=== PATIENT | male | born 1950 | race Caucasian/White ===

== ENCOUNTER 2018-04-26 11:49 | Outpatient (CLI) | payer MEDICARE, OTHER | END 2018-04-26 11:50 | disposition critical access hospital (66) | LOC: EMS 11:49 | PROVIDERS: ATTEND Surgery | DX: M25.561 Pain in right knee (principal); W10.9XXA Fall (on) (from) unspecified stairs and steps, initial encounter; Y92.019 Unspecified place in single-family (private) house as the place of occurrence of the external cause | CPT/HCPCS: A0425; A0429 ==

== ENCOUNTER 2018-04-26 12:13 | Emergency (ER) | payer MEDICARE, OTHER ==
--- NOTE | 2018-04-26 13:15 | XRAY Report ---
Procedure Date: 04/26/2018 Accession Number: [id number] / [id number] Procedure: XR - Knee 4 View RT CPT Code: FULL RESULT: EXAM: RIGHT KNEE RADIOGRAPHY EXAM DATE: 04/26/2018 01:06 PM. CLINICAL HISTORY: Trauma. COMPARISON: None. TECHNIQUE: 4 views. FINDINGS: Bones: There is an acute minimally displaced fracture through the lateral articular surface of the lateral tibial plateau. Joints: Normal alignment. A moderate lipohemarthrosis is seen. Soft Tissues: Normal. No soft tissue swelling. IMPRESSION: Acute minimally displaced lateral tibial plateau fracture. RADIA
--- NOTE | 2018-04-26 13:17 | ED Physician Documentation ---
PD HPI LOWER EXT INJURY - Stated complaint Stated Complaint: Knee pain - Chief complaint Chief Complaint: Ext Problem - History obtained from History obtained from: Patient - History of Present Illness PD HPI LOW EXT INJURY LOCATION: Right, Knee Type of injury: Fall Where injury occurred: Home Timing - onset: Enter time (1119), Today Timing - duration: Minutes Timing - details: Abrupt onset, Still present Improved by: Rest, Ice, Immobilization Worsened by: Moving, Palpating Associated symptoms: Swelling. No: Weakness, Numbness Contributing factors: No: Anticoagulated Similar symptoms before: Has not had sx before Recently seen: Not recently seen - Additional information Additional information: 68-year-old male went to his friend's house today was walking down some stairs and slipped on some vinyl and jammed his foot into the ground. He is complaining of pain in the right knee. He was able to get into his car and drive home and when he got there he had to have help to get out of the truck and had significant swelling. He was not able to get up and walk and called the ambulance. Review of Systems Constitutional: denies: Fever Eyes: denies: Decreased vision Ears: denies: Ear pain Nose: denies: Reviewed and negative Throat: denies: Sore throat Respiratory: denies: Cough GI: denies: Vomiting : denies: Dysuria Skin: denies: Rash Musculoskeletal: reports: Extremity pain, Joint pain, Joint swelling, Pain with weight bearing. denies: Neck pain Neurologic: denies: Generalized weakness, Focal weakness, Numbness PD PAST MEDICAL HISTORY - Present Medications Home Medications: Ambulatory Orders Medication Instructions Recorded Confirmed HYDROcod/ACETAM 5/325 [[place] 5/325] 1 - 2 ea PO Q6H PRN #15 tablet 04/26/18 - Allergies Allergies/Adverse Reactions: Allergies Allergy/AdvReac Type Severity Reaction Status Date / Time No Known Drug Allergies Allergy Verified 04/26/18 12:20 PD ED PE NORMAL - Vitals Vital signs reviewed: Yes (hypertensive ) - General General: Alert and oriented X 3, No acute distress, Well developed/nourished - HEENT HEENT: Atraumatic, PERRL, EOMI - Respiratory Respiratory: No respiratory distress - Derm Derm: Normal color, Warm and dry, No rash - Extremities Extremities: Other (There is marked swelling to the right knee anteriorly and pain along both joint lines there is acute exacerbation of the pain with any ROM. distal n/v is intact. ) - Neuro Neuro: Alert and oriented X 3, toll gate tender 2-12 intact, No motor deficit, No sensory deficit, Normal speech Eye Opening: Spontaneous Motor: Obeys Commands Verbal: Oriented GCS Score: 15 - Psych Psych: Normal mood, Normal affect Results - Vitals Vitals: Vital Signs - 24 hr 04/26/18 12:18 Temperature 36.9 C Heart Rate 90 Respiratory 18 Rate Blood Pressure 176/97 H O2 Saturation 100 Oxygen O2 Source Room air - Rads (name of study) knee Radiology: Prelim report reviewed (Impression: Acute minimally displaced lateral tibial plateau fracture.), EMP read indepedently, See rad report PD MEDICAL DECISION MAKING - ED course Complexity details: reviewed old records, reviewed results, re-evaluated patient , considered differential, d/w patient, d/w field service consultant (Wei: recomends immobilizer and follow up in clinic. ) ED course: 68-year-old male with a fall down stairs has a tibial plateau fracture which is nondisplaced on the right knee. He has a lot of swelling to the knee he is placed into a knee immobilizer and crutches will give his pain medication and he will follow-up with orthopedics. - Sepsis Event Vital Signs: Vital Signs - 24 hr 04/26/18 12:18 Temperature 36.9 C Heart Rate 90 Respiratory 18 Rate Blood Pressure 176/97 H O2 Saturation 100 Oxygen O2 Source Room air Departure - Departure Disposition: 01 Home, Self Care Clinical Impression: Tibial plateau fracture, right Qualifiers: Encounter type: initial encounter Fracture type: closed Qualified Code(s): S82.141A - Displaced bicondylar fracture of right tibia, initial encounter for closed fracture Condition: Stable Instructions: ED Fx Knee Follow-Up: Oj Carvajal MD [Provider Admit Priv/Credential] - Prescriptions: HYDROcod/ACETAM 5/325 [[place] 5/325] 1 - 2 ea PO Q6H PRN #15 tablet PRN Reason: Pain
[2018-04-26] MEDS: HYDROcod/ACETAM 5/325 MG TABLET PO STA (15:09)
[2018-04-26 16:34] VITALS: BP 160/90
--- NOTE | 2018-04-27 13:31 | ED Physician Documentation ---
ED Addendum - Addendum Addendum: 04/27/18 13:30 [facility] called and reported that the patient states he never received his prescription. They do not show that it has been filled anywhere. They do not show that he has ever been on narcotics from any other providers within the past year. Does not have any abuse history. Unclear if he actually received the prescription or not, therefore will refill a small amount of the pain medication for him as he does have a tibial plateau fracture. He will come and pick the prescription up today. Departure - Departure Disposition: 01 Home, Self Care Clinical Impression: Tibial plateau fracture, right Qualifiers: Encounter type: initial encounter Fracture type: closed Qualified Code(s): S82.141A - Displaced bicondylar fracture of right tibia, initial encounter for closed fracture Condition: Stable Instructions: ED Fx Knee Follow-Up: Oj Carvajal MD [Provider Admit Priv/Credential] - Prescriptions: HYDROcod/ACETAM 5/325 [[place] 5/325] 1 - 2 ea PO Q6H PRN #15 tablet PRN Reason: Pain Discharge Date/Time: 04/26/18 16:00
== END 2018-04-26 16:00 | disposition home or self-care (01) ==
LOC: ED 12:13
DX: S82.141A Displaced bicondylar fracture of right tibia, initial encounter for closed fracture (principal); W10.8XXA Fall (on) (from) other stairs and steps, initial encounter
CPT/HCPCS: 99283

== ENCOUNTER 2019-03-28 15:37 | Outpatient (CLI) | payer MEDICARE, OTHER | END 2019-03-28 15:38 | disposition short-term general hospital (02) | LOC: EMS 15:37 | PROVIDERS: ATTEND Surgery | DX: R07.89 Other chest pain (principal); R06.02 Shortness of breath | CPT/HCPCS: A0425; A0427 ==

== ENCOUNTER 2020-06-19 11:06 | Outpatient (CLI) | payer MEDICARE, OTHER | END 2020-06-19 11:07 | disposition critical access hospital (66) | LOC: EMS 11:06 | PROVIDERS: ATTEND Surgery | DX: R73.09 Other abnormal glucose (principal); R53.83 Other fatigue | CPT/HCPCS: A0425; A0429 ==

== ENCOUNTER 2020-06-19 11:28 | Emergency (ER) | payer MEDICARE, OTHER ==
[2020-06-19] MEDS ORDERED: SODIUM CHLORIDE 0.9% 1,000 ML IV STA ×2 (11:55→13:56)
[2020-06-19] MEDS ORDERED: INSULIN REGULAR HUMAN 100 UNIT in SODIUM CHLORIDE 0.9% 100ML 99 ML IV STA (11:55)
[2020-06-19] MEDS ORDERED: INSULIN REGULAR HUMAN 100 UNIT/1 ML 10 ML MDV IVP STA (11:56)
--- NOTE | 2020-06-19 11:59 | ED Physician Documentation ---
History of Present Illness - Stated complaint Stated Complaint: LETHARGY - Chief complaint Chief Complaint: General - History obtained from History obtained from: Patient - Additonal information Additional information: Previously well 70-year-old male with a prior history of prediabetes has developed fatigue and feeling not right. He states he feels about 60%. [facility] and was diagnosed with diabetes with a blood sugar over 400 and he was given insulin to start. He was unable to complete this this morning and has come to the emergency department. Review of Systems Constitutional: reports: Fatigue. denies: Fever, Chills, Myalgias Eyes: denies: Decreased vision Ears: denies: Ear pain Nose: denies: Rhinorrhea / runny nose, Congestion Throat: denies: Sore throat Cardiac: denies: Chest pain / pressure, Palpitations Respiratory: denies: Dyspnea, Cough GI: denies: Abdominal Pain, Nausea, Vomiting, Constipation, Diarrhea : denies: Dysuria, Frequency Skin: denies: Rash Musculoskeletal: denies: Neck pain, Back pain, Extremity pain Neurologic: denies: Generalized weakness, Focal weakness, Numbness, Difficulty speaking PD PAST MEDICAL HISTORY - Past Medical History Past Medical History: Yes Cardiovascular: Other Respiratory: None Neuro: None Endocrine/Autoimmune: Type 2 diabetes GI: None : None HEENT: None Psych: Depression Musculoskeletal: None Derm: None - Past Surgical History Past Surgical History: Yes - Present Medications Home Medications: Ambulatory Orders Medication Instructions Recorded Confirmed HYDROcod/ACETAM 5/325 [[place] 5/325] 1 - 2 ea PO Q6H PRN #15 tablet 04/26/18 metFORMIN [Glucophage] 500 mg PO BIDWM #40 tablet 06/19/20 - Allergies Allergies/Adverse Reactions: Allergies Allergy/AdvReac Type Severity Reaction Status Date / Time No Known Drug Allergies Allergy Verified 04/26/18 12:20 - Social History Does the pt smoke?: No Smoking Status: Former smoker Does the pt drink ETOH?: No Does the pt have substance abuse?: No - Immunizations Immunizations are current?: No PD ED PE NORMAL - Vitals Vital signs reviewed: Yes (Hypertensive) - General General: Alert and oriented X 3, No acute distress, Well developed/nourished - HEENT HEENT: Atraumatic, PERRL, EOMI, Other (Dry mucous membranes) - Neck Neck: Supple, no meningeal sign, No bony TTP - Cardiac Cardiac: RRR, No murmur - Respiratory Respiratory: No respiratory distress, Clear bilaterally - Abdomen Abdomen: Normal bowel sounds, Soft, Non tender, Non distended, No organomegaly - Back Back: No CVA TTP, No spinal TTP - Derm Derm: Normal color, Warm and dry, No rash - Extremities Extremities: No deformity, No edema, No calf tenderness / cord - Neuro Neuro: Alert and oriented X 3, workers compensation claims analyst 2-12 intact, No motor deficit, No sensory deficit, Normal speech Eye Opening: Spontaneous Motor: Obeys Commands Verbal: Oriented GCS Score: 15 - Psych Psych: Normal mood, Normal affect Results - Vitals Vitals: Vital Signs - 24 hr 06/19/20 06/19/20 06/19/20 11:31 11:44 13:34 Temperature 36.6 C 36.6 C 36.8 C Heart Rate 63 65 62 Respiratory 16 15 Rate Blood Pressure 135/79 H 136/82 H 114/71 O2 Saturation 99 99 100 06/19/20 15:00 Temperature Heart Rate 66 Respiratory 16 Rate Blood Pressure 111/56 L O2 Saturation 100 Oxygen O2 Source Room air - Labs Labs: Laboratory Tests 06/19/20 06/19/20 06/19/20 12:09 12:09 12:09 WBC 5.3 RBC 4.64 L Hgb 13.5 L Hct 40.1 L MCV 86.4 MCH 29.1 MCHC 33.7 RDW 14.4 Plt Count 134 MPV 12.4 H Neut # (Auto) 3.3 Lymph # (Auto) 0.9 L [place] # (Auto) 0.5 Eos # (Auto) 0.6 Baso # (Auto) 0.0 Absolute Nucleated RBC 0.00 Nucleated RBC % 0.0 VBG pH 7.338 VBG pCO2 28.2 L VBG pO2 31.9 VBG HCO3 14.8 L VBG Total CO2 15.7 L VBG O2 Saturation 65.9 VBG Base Excess -9.4 L Sodium 134 L Potassium 4.0 Chloride 99 L Carbon Dioxide 19 L Anion Gap 16.0 H BUN 14 Creatinine 1.1 Estimated GFR (MDRD) 66 L Glucose 252 H Calcium 10.2 Total Bilirubin 1.3 H AST 26 ALT 40 Alkaline Phosphatase 83 Total Protein 5.7 L Albumin 3.5 Globulin 2.2 Albumin/Globulin Ratio 1.6 Lipase 56 H Urine Color Urine Clarity Urine pH Ur Specific [place] Urine Protein Urine Glucose (UA) Urine Ketones Urine Occult Blood Urine Nitrite Urine Bilirubin Urine Urobilinogen Ur Leukocyte Esterase Ur Microscopic Review Urine Culture Comments Serum Ketones SMALL H 06/19/20 12:42 WBC RBC Hgb Hct MCV MCH MCHC RDW Plt Count MPV Neut # (Auto) Lymph # (Auto) [place] # (Auto) Eos # (Auto) Baso # (Auto) Absolute Nucleated RBC Nucleated RBC % VBG pH VBG pCO2 VBG pO2 VBG HCO3 VBG Total CO2 VBG O2 Saturation VBG Base Excess Sodium Potassium Chloride Carbon Dioxide Anion Gap BUN Creatinine Estimated GFR (MDRD) Glucose Calcium Total Bilirubin AST ALT Alkaline Phosphatase Total Protein Albumin Globulin Albumin/Globulin Ratio Lipase Urine Color LT. YELLOW Urine Clarity CLEAR Urine pH 5.5 Ur Specific [place] 1.025 Urine Protein NEGATIVE Urine Glucose (UA) >=1000 H Urine Ketones >=80 H Urine Occult Blood NEGATIVE Urine Nitrite NEGATIVE Urine Bilirubin NEGATIVE Urine Urobilinogen 0.2 (NORMAL) Ur Leukocyte Esterase NEGATIVE Ur Microscopic Review NOT INDICATED Urine Culture Comments NOT INDICATED Serum Ketones Procedures - IVC sono (time) 1150 Bedside IVC sono: IVC measures (cm) (0.77), IVC collapsed c insp (cm) (complete), Dehydration (est 2-3 liter deficit) PD MEDICAL DECISION MAKING - ED course Complexity details: reviewed old records, reviewed results, re-evaluated patient, considered differential, d/w patient ED course: Previous well 70-year-old male with a history of prediabetes now has diabetes and he is dehydrated. He believes he has been getting up more than 3 times per night for the past year and he drinks a lot of extra fluid as well. Today he is administered IV saline and insulin and we are able to get his blood glucose down to 119. He has been evaluated at the [facility] and has had a high A1c. "over 15". He was instructed to take insulin and was expected back at [facility] today and when he did not show up they became concerned. When they found that he had been started on an insulin drip here in the ED they became even more concerned and his PMD called me from the clinic to review the case. When he arrived he was found to be dehydrated and he was treated with a bolus of insulin and 2 liters of fluid and placed onto a drip at 6 units per hour. His blood sugar was not extremely elevated and we gained control stopped the drip and finished the fluids with his ending blood sugar being 119 and he was discharged with a script for metformin. Departure - Departure Disposition: 01 Home, Self Care Clinical Impression: Diabetes Qualifiers: Diabetes mellitus type: type 2 Diabetes mellitus marine oil terminal superintendent insulin use: without marine oil terminal superintendent use Diabetes mellitus complication status: with hyperglycemia Qualified Code(s): E11.65 - Type 2 diabetes mellitus with hyperglycemia Condition: Stable Instructions: Diabetes Type 2, ED Diabetes Hypoglycemia Oral Agent Follow-Up: [facility] [Provider Group] Prescriptions: metFORMIN [Glucophage] 500 mg PO BIDWM #40 tablet Discharge Date/Time: 06/19/20 15:19
[2020-06-19 12:15] LABS: BASOPHILS % (AUTO) 0.4 %; EOSINOPHILS # (AUTO) 0.6 10^3/uL (0.0-0.7); EOSINOPHILS % (AUTO) 10.7 %; HGB - HEMOGLOBIN 13.5 g/dL (14.0-18.0); LYMPHOCYTES # (AUTO) 0.9 10^3/uL (1.5-3.5); LYMPHOCYTES % (AUTO) 17.4 %; MEAN CORPUSCULAR HEMOGLOBIN 29.1 pg (27.0-31.0); MEAN CORPUSCULAR HGB CONC 33.7 g/dL (32.0-36.0); MEAN CORPUSCULAR VOLUME 86.4 fL (80.0-94.0); MEAN PLATELET VOLUME 12.4 fL (7.4-11.4); MONOCYTES # (AUTO) 0.5 10^3/uL (0.0-1.0); MONOCYTES % (AUTO) 9.9 %; NEUTROPHILS # (AUTO) 3.3 10^3/uL (1.5-6.6); NEUTROPHILS % (AUTO) 61.2 %; PLT - PLATELET COUNT 134 10^3/uL (130-450); RED BLOOD COUNT 4.64 10^6/uL (4.70-6.10); RED CELL DISTRIBUTION WIDTH 14.4 % (12.0-15.0); VBG BASE EXCESS -9.4 mmol/L (-2 - +2); VBG PCO2 28.2 mmHg (41-51); VBG PH 7.338 (7.31-7.41); VBG PO2 31.9 mmHg (25-47); VBG TOTAL CO2 15.7 mmol/L (24-29); WHITE BLOOD COUNT 5.3 x10^3/uL (4.8-10.8)
[2020-06-19 12:31] LABS: KETONES, SERUM (ACETEST) SMALL (NEGATIVE)
[2020-06-19 12:35] LABS: ALBUMIN 3.5 g/dL (3.2-5.5); ALBUMIN/GLOBULIN RATIO 1.6 (1.0-2.2); ALKALINE PHOSPHATASE 83 IU/L (42-121); ALT ALANINE AMINOTRANSFERASE 40 IU/L (10-60); AST ASPARTATE AMINOTRANSFERASE 26 IU/L (10-42); BILIRUBIN,TOTAL 1.3 mg/dL (0.2-1.0); BUN - BLOOD UREA NITROGEN 14 mg/dL (6-20); CALCIUM 10.2 mg/dL (8.5-10.3); CARBON DIOXIDE - CO2 19 mmol/L (21-32); CHLORIDE 99 mmol/L (101-111); CREATININE 1.1 mg/dL (0.6-1.2); GLUCOSE 252 mg/dL (70-100); LIPASE 56 U/L (22-51); SODIUM 134 mmol/L (135-145); TOTAL PROTEIN 5.7 g/dL (6.7-8.2)
[2020-06-19 12:51] LABS: GLUCOSE, URINE (UA) >=1000 mg/dL (NEGATIVE); KETONES,URINE (UA) >=80 mg/dL (NEGATIVE); LEUKOCYTE ESTERASE, URINE NEGATIVE (NEGATIVE); NITRITE,URINE NEGATIVE (NEGATIVE); OCCULT BLOOD,URINE NEGATIVE (NEGATIVE); PH,URINE 5.5 PH (5.0-7.5); PROTEIN,URINE NEGATIVE (NEGATIVE); UROBILINOGEN,URINE 0.2 (NORMAL) E.U./dL (NORMAL)
[2020-06-19 12:57] LABS: BILIRUBIN,URINE NEGATIVE (NEGATIVE); CLARITY,URINE CLEAR (CLEAR); ICTOTEST,URINE NEGATIVE
[2020-06-19 15:05] VITALS: BP 111/56
[2020-06-19 19:29] LABS: HEMOGLOBIN A1c% 17.4 % (4.27-6.07)
== END 2020-06-19 15:19 | disposition home or self-care (01) ==
LOC: EDBD → EDUNIT# → ED 11:28
DX: E11.65 Type 2 diabetes mellitus with hyperglycemia (principal); Z79.84 Long term (current) use of oral hypoglycemic drugs; Z87.891 Personal history of nicotine dependence; R03.0 Elevated blood-pressure reading, without diagnosis of hypertension; E86.0 Dehydration
CPT/HCPCS: 36415; 80053; 81003; 82009; 82803; 83036; 83690; 85025; 96360; 96361; 99284; J1815; 81001; 87086